=== PATIENT | female | born 2005 | race Two or more races ===

== ENCOUNTER 2023-12-28 21:15 | Emergency (ER) | payer MEDICAID ==
[~2023-12-28] VITALS: Ht 157.5 cm; Wt 49.0 kg
[2023-12-28] MEDS: ACETAMINOPHEN 325 MG TAB PO ONE (23:24)
[2023-12-28 23:45] VITALS: BP 134/80; PULSE 74; RESP 17; TEMP 98.2; O2SAT 97
[2023-12-29] MEDS ORDERED: AUG875T PO (00:25)
== END 2023-12-29 01:49 | disposition home or self-care (01) ==
LOC: ER 21:15
DX: S61.431A Puncture wound without foreign body of right hand, initial encounter (principal); S61.451A Open bite of right hand, initial encounter; X58.XXXA Exposure to other specified factors, initial encounter; Y93.89 Activity, other specified; Y92.89 Other specified places as the place of occurrence of the external cause; Y99.8 Other external cause status
CPT/HCPCS: 73130